=== PATIENT | male | born 2000 | race Caucasian/White ===

== ENCOUNTER 2022-10-20 21:40 | Outpatient (CLI) | payer OTHER, SELFPAY | END 2022-10-20 21:41 | disposition home or self-care (01) | LOC: AMB 10-31 09:40 | PROVIDERS: Visit Provider Internal Medicine | DX: S99.911A Unspecified injury of right ankle, initial encounter (principal); W01.0XXA Fall on same level from slipping, tripping and stumbling without subsequent striking against object, initial encounter; Y93.68 Activity, volleyball (beach) (court); Y92.39 Other specified sports and athletic area as the place of occurrence of the external cause | CPT/HCPCS: A0425; A0429 ==

== ENCOUNTER 2022-10-20 21:54 | Emergency (ER) | payer OTHER, SELFPAY ==
--- NOTE | 2022-10-20 21:55 | CRLHL7_ITS ---
For Patients: As a result of the Century Cures Act, medical imaging exams and procedure reports are released immediately into your electronic medical record. You may view this report before your referring provider. If you have questions, please contact your health care provider. Indication: Trauma. Technique: Right ankle, 3 views. Comparison: None. Findings/Impression: Bones: Alignment is normal. No fractures or bone lesions. If pain persists, consider repeat radiograph in 7-10 days. Joint spaces: Small joint effusion. Soft tissues: Unremarkable. Dictated by Rudolph Mendoza MD @ 10/20/2022 10:44:43 PM (Electronically Signed)
[2022-10-20 21:56] VITALS: BP 138/87; PULSE 72; RESP 18; TEMP 36.7; O2SAT 99; BMI 21.8
--- NOTE | 2022-10-20 22:53 | ED.LOWEXIN ---
HPI - Extremity Injury (Lower) General Chief Complaint: Extremity Pain/Injury, Lower Stated Complaint: Broken Ankle Time Seen by Provider: 10/20/22 22:03 History of Present Illness HPI Narrative: Pt is a 22 year old gentleman who turned his right ankle while playing volleyball tonight when he suffered an inversion injury. Pt has moderate pain localized to the medial and lateral ankle. No other injuries or pain. Minimal swelling. Pt unable to bear weight. No skin breakdown. No treatments prior to arrival. Related Data Home Medications Medication Instructions Recorded Confirmed No Known Home Medications 10/20/22 10/20/22 Allergies Allergy/AdvReac Type Severity Reaction Status Date / Time No Known Drug Allergies Allergy Verified 10/20/22 21:59 Review of Systems Status of ROS: Reports: 6 or more systems reviewed and unremarkable except as noted in History and below Exam Narrative: Exam Narrative: EXAM GENERAL: Patient appears comfortable and well. EYES: No scleral icterus. LYMPH: No supraclavicular or cervical lymphadenopathy. SKIN: Visible skin seen during exam normal or with benign process only. EXT: No dependent lower extremity pedal edema. HEART: Regular rate and rhythm with no murmurs, rubs, or gallops. LUNGS: Clear to auscultation bilaterally with no crackles or wheezes. ABD: Soft, non tender, non distended. PSYCH: Good eye contact, speech is not pressured. EXT: Minimal swelling and pain in the right ankle Const: Vital Signs, click to edit/add: Vital Signs - 24 hr 10/20/22 21:56 Temperature 98.0 F Pulse Rate [Right Pulse Oximeter] 72 Respiratory Rate 18 Blood Pressure [Ri ght Upper Arm] 138/87 Pulse Oximetry 99 Oxygen Delivery Me thod Room Air Course Course Hospital Course: Pt seen and examined. X ray of right ankle negative upon my review. Vital Signs Vital signs: Initial Vital Signs Temperature 98.0 F 10/20/22 21:56 Temperature Source Temporal Artery Scan 10/20/22 21:56 Pulse Rate 72 10/20/22 21:56 Respiratory Rate 18 10/20/22 21:56 Blood Pressure 138/87 10/20/22 21:56 Blood Pressure Mean 104 10/20/22 21:56 Blood Pressure Position Sitting 10/20/22 21:56 Pulse Oximetry 99 10/20/22 21:56 Oxygen Delivery Method 10/20/22 21:56 Vital Signs Temperature 98.0 F 10/20/22 21:56 Pulse Rate 72 10/20/22 21:56 Respiratory Rate 18 10/20/22 21:56 Blood Pressure 138/87 10/20/22 21:56 Pulse Oximetry 99 10/20/22 21:56 Oxygen Delivery Method 10/20/22 21:56 Temperature 98.0 F 10/20/22 21:56 Pulse Rate 72 10/20/22 21:56 Respiratory Rate 18 10/20/22 21:56 Blood Pressure 138/87 10/20/22 21:56 Pulse Oximetry 99 10/20/22 21:56 Oxygen Delivery Method 10/20/22 21:56 MDM - Extremity Injury (Lower) MDM Narrative Medical decision making narrative: Pt presents with r ankle injury with negative x ray. Will treat as sprain with advancement of activity as tolerated. Rest Ice Compression Elevation Tyelnol and Motrin. Differential Diagnosis Differential diagnosis: Likely ankle sprain and strain, acute internal derangement of knee, fracture of femur, fracture of toe and ankle fracture Discharge Plan Discharge Clinical Impression: Ankle sprain and strain Additional Instructions: Rest Ice Compression Elevation Motrin Tylenol Activity Level: No Restrictions Discharge Diet: Regular Prescriptions: No Action No Known Home Medications Follow Up/Referrals: Provider,Not a Local [Primary Care Provider] -
[2022-10-20 23:15] VITALS: BP 125/78; PULSE 72; RESP 18; TEMP 36.7; O2SAT 99
== END 2022-10-20 23:14 | disposition home or self-care (01) ==
LOC: ED 22:29
PROVIDERS: Emergency Provider Internal Medicine
DX: S93.401A Sprain of unspecified ligament of right ankle, initial encounter (principal); X50.1XXA Overexertion from prolonged static or awkward postures, initial encounter; Y93.68 Activity, volleyball (beach) (court)
CPT/HCPCS: 73610; 99283